=== PATIENT | male | born 1955 | race Hispanic/Latino ===

== ENCOUNTER 2016-07-11 08:46 | Outpatient (CLI) | payer MEDICARE ==
--- NOTE | 2016-07-11 14:21 | Magnetic Resonance Report ---
MR scan of the cranium was performed with and without contrast. Pulse sequences included: 1. T1 weighted sagittal and axial images without contrast and T1 axial images with contrast as wells as coronal and sagittal reconstructions with contrast 2. T2 weighted axial and coronal images 3. FLAIR axial images 4. Diffusion-weighted axial images 5. Apparent diffusion coefficient images Views of the posterior fossa showed a normal craniocervical junction. Cerebellar pontine angles were normal with normal seventh-eighth nerve complexes. Brainstem and cerebellum were normal. The ventricular system showed no dilatation or distortion. Images of the hemispheres showed some increased signal at the apices of the lateral ventricles. Pituitary, flow voids in the [place], orbits, and basal ganglia were normal. There are no abnormal areas of enhancement with contrast. Increased signal was seen in the right mastoid consistent with mastoid sinusitis. Impression: Normal MR scan of the cranium with and without contrast except for right mastoid sinusitis
--- NOTE | 2016-07-11 14:32 | Magnetic Resonance Report ---
Mr of the orbits Pulse sequences 1. Coronal and axial thin slice T2 images 2. Axial T1 thin slice 3. Proton density thin slice 4. coronal and axial thin slice T1 with contrast and left and right sagittal T1 with contrast Images of the orbit including muscles, globe, and bony structures were normal. No abnormalities were seen in the optic nerves. No mass lesions were seen. No enlargement of orbital muscles were seen. There were no areas of enhancement with contrast. No vascular abnormalities were seen. The pituitary was normal as were the cavernous sinuses Impression: Normal mr scan of the orbits with and without contrast
--- NOTE | 2016-07-11 14:37 | Magnetic Resonance Report ---
MR angiogram was performed of the intracranial circulation 3-D [id number] spoiled grass images were obtained of the intracranial circulation. The images of the carotid arteries showed no areas of occlusion or aneurysmal dilatation. The vertebral basilar system was also patent without any evidence of occlusive disease. The right vertebral was considerably larger than the left vertebral, a normal anatomic variation. The left posterior cerebral artery originated from the carotid circulation, another anatomic variation. Impression: Normal MR angiogram of the intracranial circulation.
== END 2016-07-11 08:47 | disposition home or self-care (01) ==
LOC: SPVIMAG 08:46
PROVIDERS: ATTEND Specialist
DX: H54.42 Blindness, left eye, normal vision right eye (principal); J32.8 Other chronic sinusitis
CPT/HCPCS: 70543; 70544; 70553; A9577